=== PATIENT | female | born 1975 | race American Indian/Alaskan Native ===

== ENCOUNTER 2016-03-28 11:58 | Emergency (ER) | payer SELFPAY ==
[2016-03-28 12:31] VITALS: BP 149/94
== END 2016-03-28 17:52 | disposition left against medical advice (07) ==
LOC: ED 11:58
DX: K08.89 Other specified disorders of teeth and supporting structures (principal); R51 Headache; Z53.21 Procedure and treatment not carried out due to patient leaving prior to being seen by health care provider